=== PATIENT | female | born 1970 | race American Indian/Alaskan Native ===

== ENCOUNTER 2017-10-16 06:42 | Outpatient (CLI) | payer OTHER ==
--- NOTE | 2017-10-17 10:01 | PET Report ---
PET/CT:10/16/17 06:42:00 CLINICAL: Chest mass. RADIOPHARMACEUTICAL: 15.11mCi F18-FDG. COMPARISON: 08/23/17 CT Chest TECHNIQUE- Following intravenous injection of F-18 FDG and an approximately 60 minute uptake period, CT and PET images from the mid skull to the upper thighs were acquired with the patient in the fasted state. No contrast was administered. The CT protocol used for this PET CT study is designed for attenuation correction and anatomic localization of PET abnormalities. This machine records units supervisor CT is not desired to produce and cannot replace, [id number] diagnostic CT scans with specific imaging protocols for different body parts and indications. Plasma glucose at the time of this test: 88g/dl. The standardized uptake values (SUV) are normalized to patient body weight and indicate the highest activity concentration (SUV max) in a given disease site. FINDINGS: Brain--Physiologic FDG uptake in the visualized regions of the brain. Neck--Physiologic FDG uptake in mucosal structures and no abnormal uptake. Non-FDG avid subcentimeter submental lymph nodes. No lymphadenopathy. Chest--Physiologic FDG uptake in mediastinal blood pool and myocardium. Lungs--No abnormal uptake. No pulmonary nodule. The previously described right lower lobe paraspinal smooth mass is non-FDG avid and measures 40 Hounsfield units density. It measures 2.7 x 2.3 x 2.4 cm. No other chest mass. Pleura/pericardium--No abnormal uptake. Thoracic nodes--No abnormal uptake. Hepatobiliary--No abnormal uptake. Liver background SUV mean, as a reference for comparing FDG studies, is 4.61 . No liver mass. Spleen--No abnormal uptake. Pancreas--No abnormal uptake. Adrenal Glands--No abnormal uptake. A round smooth 1.6 x 1.6 cm hypodense left adrenal nodule is non-FDG avid and measures seven Hounsfield units in density. Kidneys/Ureters/Bladder--No abnormal uptake. Abdominopelvic Nodes--No abnormal uptake. Bowel/Peritoneum/Mesentery--No abnormal uptake. Pelvic organs--No abnormal uptake. Bones/Soft Tissues--No abnormal uptake. No suspicious bone lesion. Other findings: A fat containing umbilical hernia. IMPRESSION-1. A benign 2.4 cm right lower lobe paraspinal mass. 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 2. No pulmonary nodule or mass. 3. A benign 1.6 cm left adrenal adenoma.
== END 2017-10-16 06:43 | disposition home or self-care (01) ==
LOC: PET 06:42
PROVIDERS: ATTEND Internal Medicine
DX: R91.1 Solitary pulmonary nodule (principal); K42.9 Umbilical hernia without obstruction or gangrene; D35.02 Benign neoplasm of left adrenal gland; I50.9 Heart failure, unspecified; E66.9 Obesity, unspecified
CPT/HCPCS: 78815; 82962; A9552